=== PATIENT | male | born 1990 | race American Indian/Alaskan Native ===

== ENCOUNTER 2021-01-24 14:22 | Emergency (ER) | payer SELFPAY ==
[2021-01-24] MEDS ORDERED: ONDANSETRON 4 MG/2 ML INJ IV ONE (14:40)
[2021-01-24] MEDS ORDERED: MORPHINE 4 MG/1 ML INJ IV ONE (14:40)
--- NOTE | 2021-01-24 14:41 | Event Note ---
ED Screening Note Date of service: 01/24/21 Time: 14:41 ED Screening Note: Patient complains of sudden onset of epigastric and right upper quadrant pain radiating into his chest starting yesterday Significant tenderness to palpation of the epigastric and right upper quadrant on exam Denies past medical history + Vomiting This initial assessment/diagnostic orders/clinical plan/treatment(s) is/are subject to change based on patients health status, clinical progression and re- assessment by fellow clinical providers in the ED. Further treatment and workup at subsequent clinical providers discretion. Patient/guardian urged not to elope from the ED as their condition may be serious if not clinically assessed and managed. Initial orders include: Labs EKG Chest x-ray Right upper quadrant ultrasound
--- NOTE | 2021-01-24 15:19 | XRay Report ---
CHEST 2 VIEWS INDICATION / CLINICAL INFORMATION: chest pain. COMPARISON: None available. FINDINGS: SUPPORT DEVICES: None. HEART / MEDIASTINUM: No significant abnormality. LUNGS / PLEURA: No significant pulmonary or pleural abnormality. No pneumothorax. ADDITIONAL FINDINGS: No significant additional findings. IMPRESSION: 1. No acute findings. Signer Name: Jb Gaytan MD Signed: 01/24/2021 3:15 PM Workstation Name: [id number]
[2021-01-24 15:46] LABS: Basophils % (Auto) 0.3 % (0.0-1.8); Eosinophils % (Auto) 0.1 % (0.0-4.3); Hematocrit 43.6 % (35.5-45.6); Hemoglobin 14.3 gm/dl (11.8-15.2); Lymphocytes # (Auto) 0.7 K/mm3 (1.2-5.4); Lymphocytes % (Auto) 7.2 % (13.4-35.0); Mean Corpuscular HGB Conc 33 % (32-34); Mean Corpuscular Volume 86 fl (84-94); Monocytes # (Auto) 0.5 K/mm3 (0.0-0.8); Monocytes % (Auto) 5.2 % (0.0-7.3); Platelet Count 168 K/mm3 (140-440); Red Blood Count 5.07 M/mm3 (3.65-5.03)
[2021-01-24 15:55] LABS: Alanine Aminotransferase 21 units/L (7-56); Albumin 4.6 g/dL (3.9-5); BUN/Creatinine Ratio 16; Blood Urea Nitrogen 14 mg/dL (9-20); Calcium 9.7 mg/dL (8.4-10.2); Hemolysis Index 15
[2021-01-24 16:49] VITALS: BP 154/71
--- NOTE | 2021-01-24 16:57 | Ultrasound Report ---
ULTRASOUND ABDOMEN, LIMITED INDICATION / CLINICAL INFORMATION: acute pain. COMPARISON: None available. FINDINGS: PANCREAS: Visualized portion shows no significant abnormality. LIVER: Liver is enlarged with fatty infiltration. Liver measures 18.6 cm GALLBLADDER: No significant abnormality. BILE DUCTS: No significant abnormality. Common bile duct measures 2 mm. FREE FLUID: None. ADDITIONAL FINDINGS: None. IMPRESSION: 1. Hepatomegaly with hepatic steatosis. Signer Name: Jb Gaytan MD Signed: 01/24/2021 4:53 PM Workstation Name: [id number]
[2021-01-24] MEDS ORDERED: ALUM-MAG HYDROXIDE-SIMETHICONE 200-200-20MG/5ML ORAL LIQD 30 ML PO ONE (17:17)
[2021-01-24] MEDS ORDERED: LIDOCAINE VISCOUS 2% 15 ML ORAL LIQD PO ONE (17:17)
[2021-01-24] MEDS ORDERED: FAMOTIDINE 20 MG/2 ML INJ IV ONE (17:17)
--- NOTE | 2021-01-24 17:22 | Emergency Department Report ---
HPI - General Chief Complaint: Chest Pain Time Seen by Provider: 01/24/21 14:39 - HPI HPI: Room 23 The patient is a 30-year-old male presenting with a chief complaint of chest and abdominal pain. Patient states his symptoms began last night when a rising burning pain in his chest. Patient states he has noticed increased eructation and has had episode of nausea vomiting. Patient states she has noticed the pain worsens after eating or when lying down. Patient currently gives his pain a score 7-8/10. Patient denies history of cough ED Past Medical Hx - Past Medical History Previous Medical History?: No - Surgical History Past Surgical History?: No - Family History Family history: no significant - Social History Smoking Status: Never Smoker Substance Use Type: None ED Review of Systems ROS: Stated complaint: CHEST TIGHTNESS/SEVERE ABDOMINAL PAIN Other details as noted in HPI Constitutional: fever (Subjective) Eyes: denies: eye pain ENT: denies: throat pain Respiratory: no symptoms reported Cardiovascular: chest pain Endocrine: no symptoms reported Gastrointestinal: abdominal pain, nausea, vomiting Genitourinary: denies: dysuria Musculoskeletal: back pain Neurological: denies: headache Physical Exam - Physical Exam Vital Signs: Vital Signs 01/24/21 01/24/21 14:38 16:45 Temperature 99.6 F Pulse Rate 92 H 98 H Respiratory 28 H 16 Rate Blood Pressure 154/71 Blood Pressure 151/79 [Right] O2 Sat by Pulse 100 98 Oximetry Physical Exam: GENERAL: The patient is well-developed well-nourished male lying on stretcher not appearing to be in acute distress. [] HEENT: Normocephalic. Atraumatic. Extraocular motions are intact. Patient has moist mucous membranes. NECK: Supple. Trachea midline CHEST/LUNGS: Clear to auscultation. There is no respiratory distress noted. HEART/CARDIOVASCULAR: Regular. There is no tachycardia. There is no gallop rub or murmur. ABDOMEN: Abdomen is soft, with mild discomfort to palpation in the suprapubic and midepigastric region. There is no tenderness to palpation in the right upper quadrant. There is no rebound or guarding. Patient has normal bowel sounds. There is no abdominal distention. SKIN: There is no rash. There is no edema. There is no diaphoresis. NEURO: The patient is awake, alert, and oriented. The patient is cooperative. The patient has no focal neurologic deficits. The patient has normal speech MUSCULOSKELETAL: There is no evidence of acute injury. ED Course Vital Signs 01/24/21 01/24/21 14:38 16:45 Temperature 99.6 F Pulse Rate 92 H 98 H Respiratory 28 H 16 Rate Blood Pressure 154/71 Blood Pressure 151/79 [Right] O2 Sat by Pulse 100 98 Oximetry - Reevaluation(s) Reevaluation #1: 01/24/21 18:09 Patient states he feels improved after GI cocktail and no longer feels the chest pain. I explained to the patient that wish to order second troponin as well as screening for PE with a D-dimer. Patient states he does not wish to stay and wishes to leave the hospital. Patient verbalized understanding of increased morbidity and/or mortality should he leave the hospital AGAINST MEDICAL ADVICE. Patient advised to return to the hospital immediately for reevaluation should he change his mind. ED Medical Decision Making - Lab Data Result diagrams: 01/24/21 15:13 01/24/21 15:13 Laboratory Tests 01/24/21 01/24/21 15:13 15:13 WBC 10.1 RBC 5.07 H Hgb 14.3 Hct 43.6 MCV 86 MCH 28 MCHC 33 RDW 14.0 Plt Count 168 Lymph % (Auto) 7.2 L Villalba % (Auto) 5.2 Eos % (Auto) 0.1 Baso % (Auto) 0.3 Lymph # (Auto) 0.7 L Villalba # (Auto) 0.5 Eos # (Auto) 0.0 Baso # (Auto) 0.0 Seg Neutrophils % 87.2 H Seg Neutrophils # 8.8 H Sodium 137 Potassium 4.0 Chloride 100.3 Carbon Dioxide 23 Anion Gap 18 BUN 14 Creatinine 0.9 Estimated GFR > 60 BUN/Creatinine Ratio 16 Glucose 104 H Calcium 9.7 Total Bilirubin 0.80 AST 23 ALT 21 Alkaline Phosphatase 93 Troponin T < 0.010 Total Protein 8.1 Albumin 4.6 Albumin/Globulin Ratio 1.3 Lipase 12 L - EKG Data -: EKG Interpreted by Mo EKG shows normal: sinus rhythm Rate: normal - EKG Data When compared to previous EKG there are: previous EKG unavailable Interpretation: nonspecific ST-T wave tomasa (T wave inversions in leads I and aVL) - Radiology Data Radiology results: report reviewed (Chest x-ray, right upper quadrant ultrasound), image reviewed (Chest x-ray, right upper quadrant ultrasound) interpreted by me: Chest x-ray-no focal infiltrates, no pneumothorax. No foreign body seen [address] [address] XRay Report Signed Patient: BALDEMAR GRAFF MR#: [id number] : 1990 Acct:[id number] Age/Sex: 30 / M ADM Date: 01/24/21 Loc: ED Attending Dr: Ordering Physician: HAO GARZA Date of Service: 01/24/21 Procedure(s): XR chest routine 2V Accession Number(s): [id number] cc: HAO GARZA Fluoro Time In Minutes: CHEST 2 VIEWS INDICATION / CLINICAL INFORMATION: chest pain. COMPARISON: None available. FINDINGS: SUPPORT DEVICES: None. HEART / MEDIASTINUM: No significant abnormality. LUNGS / PLEURA: No significant pulmonary or pleural abnormality. No pneumothorax. ADDITIONAL FINDINGS: No significant additional findings. IMPRESSION: 1. No acute findings. Signer Name: Jb Talley MD Signed: 01/24/2021 3:15 PM Workstation Name: [id number] Transcribed By: CW Dictated By: CLEMENCIA TALLEY MD Electronically Authenticated By: CLEMENCIA TALLEY MD Signed Date/Time: 01/24/211514 DD/ 13 TD/TT: Print Cancel [address] [address] Ultrasound Report Signed Patient: BALDEMAR GRAFF II MR#: [id number] : 1990 Acct:[id number] Age/Sex: 30 / M ADM Date: 01/24/21 Loc: ED Attending Dr: Ordering Physician: HAO GARZA Date of Service: 01/24/21 Procedure(s): US abdomen limited Accession Number(s): [id number] cc: HAO GARZA ULTRASOUND ABDOMEN, LIMITED INDICATION / CLINICAL INFORMATION: acute pain. COMPARISON: None available. FINDINGS: PANCREAS: Visualized portion shows no significant abnormality. LIVER: Liver is enlarged with fatty infiltration. Liver measures 18.6 cm GALLBLADDER: No significant abnormality. BILE DUCTS: No significant abnormality. Common bile duct measures 2 mm. FREE FLUID: None. AD DITIONAL FINDINGS: None. IMPRESSION: 1. Hepatomegaly with hepatic steatosis. Signer Name: Jb Talley MD Signed: 01/24/2021 4:53 PM Workstation Name: [id number] Transcribed By: JERE Dictated By: CLEMENCIA TALLEY MD Electronically Authenticated By: CLEMENCIA TALLEY MD Signed Date/Time: 1652 DD/ 51 TD/TT: Print Cancel - Differential Diagnosis GERD, ACS, peptic ulcer disease, PE Critical care attestation.: If time is entered above; I have spent that time in minutes in the direct care of this critically ill patient, excluding procedure time. ED Disposition Clinical Impression: Chest pain Disposition: LEFT AGAINST MED ADVICE Is pt being admited?: No Does the pt Need Aspirin: No Condition: Undetermined Instructions: Nonspecific Chest Pain, Adult Referrals: PRIMARY CARE, [Primary Care Provider] - 3-5 Days Time of Disposition: 18:10 (Patient leaving AMA) Heart Score - HEART Score History: Slightly suspicious EKG: Non-specific Age: < 45 Risk factors: 1-2 risk factors Troponin: < normal limit HEART Score: 2 - EKG Read Time Time EKG Completed: 14:51 EKG Read Time: 15:00
--- NOTE | 2021-01-25 14:31 | Electrocardiograph Report ---
[facility] Test Date: 2021-01-24 Test Time: 14:51:56 Pat Name: BALDEMAR GRAFF Department: Room: Gender: M Pasting Inspector: TERESA : 1990 Requested By: HAO GARZA Order Number: [id number] Reading MD: Beatrice Reyna Measurements Intervals [place] Rate: 105 P: 42 [place]: 155 QRS: -29 QRSD: 89 T: 115 QT: 315 QTc: 416 Interpretive Statements Sinus tachycardia Left ventricle hypertrophy Nonspecific T wave abnormality No previous ECG available for comparison Electronically Signed On 01-25-2021 14:30:51 EDT by Beatrice Reyna
== END 2021-01-24 18:29 | disposition left against medical advice (07) ==
LOC: ED 14:22
DX: R07.89 Other chest pain (principal); Z79.899 Other long term (current) drug therapy
CPT/HCPCS: 36415; 71046; 76705; 80053; 83690; 84484; 85025; 93005; 96374; 99284